=== PATIENT | female | born 2000 | race Hispanic/Latino ===

== ENCOUNTER 2018-10-09 12:31 | Emergency (ER) | payer MEDICAID, OTHER ==
[2018-10-09 12:39] VITALS: BMI 26.7
--- NOTE | 2018-10-09 13:18 | C.PDOC ---
History Of Present Illness 17-year-old male, who is , presents to the ED for evaluation of vaginal bleeding. Patient reportedly went to another institution and was told that she is having a miscarriage. Patient presents to the ED with complains of vaginal bleeding, abdominal cramping and feeling "dizzy." Patient denies fever, chills. Time Seen by Provider: 10/09/18 13:15 Chief Complaint (Nursing): Abdominal Pain History Per: Patient History/Exam Limitations: no limitations Onset/Duration Of Symptoms: Days Current Symptoms Are (Timing): Still Present Location Of Pain/Discomfort: Diffuse Quality Of Discomfort: Cramping, "Pain" Associated Symptoms: denies: Fever, Chills Additional History Per: Patient Abnormal Vaginal Bleeding: Yes : 4 Para: 0 Past Medical History Reviewed: Historical Data, Nursing Documentation, Vital Signs Vital Signs: Last Vital Signs Temp 98.8 F 10/09/18 12:39 Pulse 98 H 10/09/18 12:39 Resp 16 10/09/18 12:39 BP 108/67 10/09/18 12:39 Pulse Ox 98 10/09/18 12:39 Primary Care Provider: FAMILY PROVIDER,NO - Medical History PMH: No Chronic Diseases Surgical History: No Surg Hx - [facility] Procedures INJECT/INFUSE NEC (12/26/14) OTHER NONOP RESPIRATORY MEASURE (04/30/00) Family History: States: Unknown Family Hx - Social History Hx Alcohol Use: No Hx Substance Use: No - Immunization History Hx Tetanus Toxoid Vaccination: No Hx Influenza Vaccination: No Hx Pneumococcal Vaccination: No Review Of Systems Constitutional: Negative for: Fever, Chills Gastrointestinal: Positive for: Abdominal Pain (cramping ) Genitourinary: Positive for: Vaginal Bleeding Neurological: Positive for: Dizziness Physical Exam - Physical Exam Appears: Non-toxic, No Acute Distress Skin: Normal Color, Warm, Dry Head: Atraumatic, Normacephalic Eye(s): bilateral: Normal Inspection Oral Mucosa: Moist Neck: Supple Chest: Symmetrical, No Deformity, No Tenderness Cardiovascular: Rhythm Regular, No Murmur Respiratory: Normal Breath Sounds, No Rales, No Rhonchi, No Wheezing Gastrointestinal/Abdominal: Soft, Tenderness (mild, suprapubic ), No Guarding, No Rebound Extremity: Normal ROM, Capillary Refill (less than 2 seconds ) Neurological/Psych: Oriented x3, Normal Speech, Normal Cognition ED Course And Treatment - Laboratory Results Result Diagrams: 10/09/18 13:56 10/09/18 13:56 O2 Sat by Pulse Oximetry: 98 (on RA) Pulse Ox Interpretation: Normal Medical Decision Making Medical Decision Making: Progress: Bloodwork, urinalysis, and transvaginal ultrasound ordered and reviewed. Tylenol PO and IV Fluids given. known demise from previous today beta decreasing agian us consistent with demise miniaml bleding os closed. case discussed with obygn commissioning editor dr marybel bartholomew. recommends outpt f/u and fu with pmd to [facility] ed and c vs cytotec. Disposition - Disposition Disposition: HOME/ ROUTINE Disposition Time: 13:00 Condition: STABLE Additional Instructions: return to er with worsening symptoms or concerns. please see your obgyn in next 24 hours Instructions: Miscarriage Forms: [facility] ([place]) - Clinical Impression Clinical Impression: Miscarriage - Scribe Statement The provider has reviewed the documentation as recorded by the Scribe (Carina Pinon) Provider Attestation: All medical record entries made by the Scribe were at my direction and personally dictated by me. I have reviewed the chart and agree that the record accurately reflects my personal performance of the history, physical exam, medical decision making, and the department course for this patient. I have also personally directed, reviewed, and agree with the discharge instructions and disposition.
[2018-10-09] MEDS ORDERED: Sodium Chloride 0.9% 1,000 ML IV ONE (13:23)
[2018-10-09] MEDS ORDERED: Sodium Chloride 0.9% 1,000 ML ONE (13:43)
[2018-10-09 14:07] LABS: BASO # 0.1 K/uL (0.0-0.2); BASO % 0.6 % (0.0-2.0); EOS # 0.2 K/uL (0.0-0.7); EOS % 2.2 % (0.0-4.0); HEMOGLOBIN 12.1 g/dL (11.0-16.0); LYMPH # 2.3 K/uL (1.0-4.3); LYMPH % 26.8 % (20.0-40.0); MEAN CELL VOLUME 86.4 fL (81.0-99.0); MEAN CORPUSCULAR HEMOGLOBIN 30.5 pg (27.0-31.0); MEAN CORPUSCULAR HGB CONC 35.3 g/dL (33.0-37.0); MEAN PLATELET VOLUME 8.8 fL (7.2-11.7); MONO # 0.7 K/uL (0.0-0.8); NEUT # 5.3 K/uL (1.8-7.0); NEUT % 62.4 % (50.0-75.0); RBC 3.98 Mil/uL (3.80-5.20); RED CELL DISTRIBUTION WIDTH 13.3 % (11.5-14.5); WHITE BLOOD COUNT 8.5 K/uL (4.8-10.8)
[2018-10-09 14:09] LABS: SQUAMOUS EPITHIAL 7 /hpf (0-5); URINE AMORPHOUS SEDIMENT MODERATE /ul (<OCC); URINE BILIRUBIN NEGATIVE (NEGATIVE); URINE BLOOD 3+ (NEGATIVE); URINE CLARITY Turbid (Clear); URINE COLOR Yellow (YELLOW); URINE GLUCOSE (UA) NORMAL (Normal); URINE LEUKOCYTE ESTERASE 2+ Leu/uL (Negative); URINE PROTEIN NEGATIVE (NEGATIVE); URINE UROBILINOGEN NORMAL mg/dL (0.2-1.0)
[2018-10-09 14:14] LABS: HCG,QUALITATIVE URINE POSITIVE (NEGATIVE)
[2018-10-09 14:17] LABS: ALB/GLOB RATIO 1.4 (1.0-2.1); ALT/SGPT 16 U/L (9-52); AST/SGOT 16 U/L (14-36); BLOOD UREA NITROGEN 6 mg/dL (7-17); CALCIUM 9.3 mg/dl (8.6-10.4); GFR NON-AFRICAN AMERICAN > 60
--- NOTE | 2018-10-09 14:49 | US ---
Date of service: 10/09/2018 Indication: abd pain and h/o of miscarriage Comparison: None available Technique: Transabdominal pelvic ultrasound Findings: The uterus measures approximately 13.5 x 8.2 x 9.1 cm. Anteverted. Cervix length measures approximately 3.6 cm. There is a single intrauterine fetus present. The crown-rump length measures 4.8 cm and is compatible with a gestational age of 11 weeks 4 days. 2.3 x 1.5 x 3.7 cm subchorionic hemorrhage. heart motion is not detected. The right ovary measures 3.5 x 1.6 x 2.9 cm. The left ovary measures 3.2 x 1.4 x 3.5 cm. Flow was demonstrated to both ovaries. Impression: Single intrauterine fetus consistent with gestational age 11 weeks 4 days by crown-rump length. heart motion is not detected during this examination. Correlate clinically. 2.3 x 1.5 x 3.7 cm subchorionic hemorrhage.
[2018-10-09 15:23] VITALS: BP 102/53; PULSE 81; RESP 18; TEMP 97.7; O2SAT 99
== END 2018-10-09 15:23 | disposition home or self-care (01) ==
LOC: C.ER 12:31
DX: O03.9 Complete or unspecified spontaneous abortion without complication (principal)
CPT/HCPCS: 76801; 80053; 81001; 84702; 84703; 85025; 85730; 86850; 86900; 96360; 99284; J7030